=== PATIENT | male | born 1960 | race Caucasian/White ===

== ENCOUNTER 2021-01-13 15:28 | Emergency (ER) | payer OTHER ==
[2021-01-13 17:01] LABS: BASOPHIL 0.7 % (0-2); EOSINOPHIL 3.1 % (0-5); HCT 47.5 % (42.0-52.0); HGB 16.5 g/dl (13.2-18.0); LYMPHOCYTE 13.4 % (15-48); MCH 29.8 pg (25.0-31.0); MCHC 34.7 g/dL (32.0-36.0); MCV 85.7 fL (78.0-100.0); MONOCYTE 5.5 % (0-12); MPV 11.1 fL (6.0-9.5); NRBC 0; PLT 175 K/uL (150-400); RBC 5.54 M/uL (4.70-6.00); RDW 13.3 % (11.5-14.0); WBC 9.8 K/uL (4.0-10.5)
[2021-01-13 17:08] LABS: BUN/CREAT RATIO (CALC) 15.6 RATIO; CREATININE 0.9 mg/dL (0.67-1.17); POTASSIUM 4.2 mmol/L (3.5-5.1)
[2021-01-13 17:29] LABS: BILIRUBIN NEGATIVE (NEGATIVE); BLOOD 3+ Ery/uL (NEGATIVE); CLARITY CLEAR (CLEAR); COLOR YELLOW (YELLOW); GLUCOSE (U) TRACE mg/dL (NORMAL); LEUKOCYTES NEGATIVE Leu/uL (NEGATIVE); NITRITE NEGATIVE (NEGATIVE); PROTEIN 2+ mg/dL (NEGATIVE); SPECIFIC GRAVITY >=1.030 (1.001-1.030); UROBILINOGEN 0.2 mg/dL (0.2-1.0)
[2021-01-13 17:35] LABS: BACTERIA TRACE; URINARY RBC TNTC
[2021-01-13] MEDS ORDERED: KETOROLAC TROME10 MG PO (18:30)
[2021-01-13] MEDS ORDERED: FLOMAX0.4 MG PO (18:30)
[2021-01-13] MEDS ORDERED: NORCO 5-325 TA1 EACH PO (18:30)
== END 2021-01-13 18:45 | disposition home or self-care (01) ==
LOC: FER 15:28
PROVIDERS: Emergency Medicine
DX: N13.2 Hydronephrosis with renal and ureteral calculous obstruction (principal); E11.9 Type 2 diabetes mellitus without complications; E03.9 Hypothyroidism, unspecified; Z79.899 Other long term (current) drug therapy; Z79.84 Long term (current) use of oral hypoglycemic drugs; Z87.442 Personal history of urinary calculi
CPT/HCPCS: 36415; 80048; 81001; 85025; J1885